=== PATIENT | female | born 1985 | race Caucasian/White ===

== ENCOUNTER 2019-10-04 08:14 | Observation (INO) | payer OTHER ==
--- NOTE | 2019-10-04 08:04 | TREADPHA ---
DX: CHEST PAIN Date of Study: 10/03/2019 Ht: 5 8 Wt: 180 lb 0 oz Consulting Physician: AZEEM MEDICATIONS: TYLENOL, ASPIRIN, CARDORA, LOVENOX, LASIX, AMARYL, TOPROL XL, ZOFRAN, PROTONIX, K-LYTE, DIOVAN HISTORY: 65 YEAR OLD MALE WITH COMPLAINTS OF SHORTNESS OF BREATH. MEDICAL HISTORY OF HYPERTENSION. PHYSICIAL EXAMINATION: RESTING B.P.: 170/113 RESTING H.R.: 74 RESTING EKG: SINUS, PREMATURE VENTICULAR COMPLEXES, RIGHT AXIS DEVIATION. NON SPECIFIC ST AND T ABNORMALITY. PROTOCOL: LEXISCAN EXERCISE TIME: 3:30 B.P. AT PEAK STRESS: 142/92 IMPRESSION: LEXISCAN INJECTED. CARDIOLITE INJECTED PER PROTOCOL. SEE NUCLEAR MEDICINE RESULTS. NO SUPRAVENTRICULAR TACHYCARDIA. NO VENTRICULAR TACHYCARDIA. MULTIPLE PREMATURE VENTRICULAR COMPLEXES THROUGHOUT TEST. DENIED CHEST PAIN. NON DIAGNOSTIC EKG WITH LEXISCAN STRESS.
[2019-10-04 08:09] LABS: Absolute Lymphocytes (CBC) 1.8 K/uL (0.7-4.9); Basophils % 0.7 % (0-1.3); Hematocrit 36.9 % (36.0-45.0); Lymphocytes % 26.2 % (15.3-44.8); MPV 9.2 fL (7.6-11.3); RBC Red Blood Cell Count 3.91 M/uL (3.86-4.86)
[2019-10-04] MEDS ORDERED: CEFAZOLIN SODIUM 1 GM/VIAL ONE ×2 (08:16→13:01)
[2019-10-04] MEDS ORDERED: GENTAMICIN SULF 80 MG/2ML INJ ONE (08:16)
[2019-10-04] MEDS ORDERED: NS 0.9% VIAL 20 ML ONE ×2 (08:16→09:03)
[2019-10-04] MEDS ORDERED: Mastisol Adhesive Liq ONE (08:17)
[2019-10-04] MEDS ORDERED: BACITRACIN 50000 UNIT VIAL ONE (08:17)
[2019-10-04] MEDS ORDERED: Ringers Lactate 1,000 ML IV ONE ×3 (08:17→10:43)
[2019-10-04] MEDS ORDERED: SCOPOLAMINE HYDROBROMIDE PATCH TD ONE ×2 (08:19→08:30)
[2019-10-04] MEDS ORDERED: CEFAZOLIN/SWI 1gm 1 GM/10 ML SYR ONE (08:19)
--- NOTE | 2019-10-04 08:47 | RAD REPORT ---
EXAM DESCRIPTION: RAD - Chest Pa And Lat (2 Views) - 10/04/2019 8:13 am CLINICAL HISTORY: preop Chest pain. COMPARISON: No comparisons FINDINGS: The lungs are clear. The heart is normal in size. No displaced fractures. Mild dextroscoli osis of the thoracic spine. IMPRESSION: No acute or concerning finding suspected.
[2019-10-04] MEDS ORDERED: PROPOFOL 200 MG/20 ML VIAL IV ONE ×2 (09:02→09:44)
[2019-10-04] MEDS ORDERED: ROCURONIUM 50 MG/5 ML VIAL IV ONE ×2 (09:02→11:19)
[2019-10-04] MEDS ORDERED: dexAMETHasone 10 MG/ML VIAL ONE (09:02)
[2019-10-04] MEDS ORDERED: LIDOCAINE 2% MPF 5 ML VIAL ONE (09:02)
[2019-10-04] MEDS ORDERED: FENTANYL CITR 250 MCG/5 ML ONE (09:02)
[2019-10-04] MEDS ORDERED: VECURONIUM 10 MG/VIAL IV ONE (09:03)
[2019-10-04] MEDS ORDERED: MIDAZOLAM HCL 2 MG/2 ML INJ ONE (09:03)
[2019-10-04] MEDS ORDERED: ONDANSETRON 4 MG/2 ML VIAL ONE (09:03)
[2019-10-04] MEDS ORDERED: MORPHINE 10 MG/ML VIAL ONE (10:11)
[2019-10-04] MEDS ORDERED: NS 0.9% VIAL 10 ML ONE ×2 (10:11→13:01)
[2019-10-04] MEDS ORDERED: MEPERIDINE HCL 25 MG/0.5 ML ONE (10:11)
[2019-10-04] MEDS ORDERED: GLYCOPYRROLATE 0.2 MG/ML SYR ONE (10:32)
[2019-10-04] MEDS ORDERED: EPHEDRINE SULF 50 MG/ML VIAL ONE (10:34)
[2019-10-04] MEDS: HYDROMORPHONE HCL 2 MG/ML inj ONE ×2 (15:35→15:52)
[2019-10-04] MEDS ORDERED: PROMETHAZINE 25 MG/ML VIAL ONE (15:39)
[2019-10-04] MEDS ORDERED: D5LR 1,000 ML IV ONE (16:10)
[2019-10-04 16:26] VITALS: O2SAT 98
--- NOTE | 2019-10-04 16:31 | EKG ---
Test Date: 2019-10-04 Test Time: 15:06:53 Ply Splicer: BRIDGETT MEASUREMENT RESULTS: Intervals: Rate: 78 WI: 156 QRSD: 78 QT: 420 QTc: 478 Vader: P: 50 WI: 156 QRS: 80 T: 68 INTERPRETIVE STATEMENTS: Normal sinus rhythm Low voltage QRS Borderline ECG Compared to ECG 10/04/2019 07:53:47 Low QRS voltage now present Sinus bradycardia no longer present Sinus arrhythmia no longer present Electronically Signed On 10-04-19 16:30:02 MARINE METEOROLOGIST by Sherman Finn
[2019-10-04] MEDS: CEPHALEXIN 500 MG CAP PO SCH (17:13)
[2019-10-04] MEDS: MEPERIDINE HCL 50 MG/ML IV PRN ×2 (17:14→21:39)
[2019-10-04 17:31] VITALS: BMI 27.3
[2019-10-04] MEDS ORDERED: D5LR 1,000 ML IV SCH (18:00)
--- NOTE | 2019-10-04 21:44 | OP ---
Surgeon: Carlos Shore MD Service Inspector: Adam. Preoperative Diagnosis: Breast enlargement, asymmetry and descent. Postoperative Diagnosis: Breast enlargement asymmetry and descent. Procedure Performed: Breast lift reduction. Anesthesia: General. Procedure In Detail: After satisfactory induction of general anesthesia, chest was prepped with Dura Prep, dry sterile drapes were applied in the usual manner. A 5 cm template was used to outline the r ight and left right areola. Then, a transverse and curvilinear incisions were made. Both sides were done simultaneously. The skin was de-epithelialized with dermabrader and EpiCut. Then the transver se incision was made with electrocautery. Flap was elevated 1.5 cm thick toward the sternum, clavicl e, anterior axillary line. Then the inferior incision was made. The de-epithelized tissue was forme d with cone prior to conization. Excess lateral breast tissue was excised with electrocautery. Tota l amount of breast tissue removed from right breast was 396 g, total amount on the left breast was 28 6 g. After this was done, conization performed with 2-0 PDS, then straps were elevated at 12 o'clock , 1:30 and 3 o'clock position on the right breast in a mirror image on the left. Straps were then wo genaro in and out the pectoralis major muscle, then back to the base of the cone, back to pectoralis mus chris, back to the base of cone, tied to themselves with 2-0 PDS suture. This was done for the 12 o'cl ock and 130 straps. The 3 o'clock strap was sewn over the sternum with 2-0 Ethibond. Mirror-image w as done on the left side. The patient's wounds were then temporarily stapled shut. Dog-ears were ma rked out and excised and then 10 FELIPE was brought out the axilla and sewn in place with 2-0 silk. Laye red closure consisted of 3-0 Vicryl subcu, 3-0 PDS running subcuticular tied in the vertical meridian of each breast. The patient was sat up. Site for new nipple-areolar complex was marked out. Tissu e was cored out, nipples delivered, sewn in place with interrupted 4-0 PDS followed by 4-0 PDS runnin g subcuticular. Dressings of tincture of benzoin, Steri-Strips, 5 x 5 fluffs and Chaitanya wrap during the procedure approximately 0.5 hour to 45 minutes into the procedure. While elevating the flaps the pa tient had bradycardia, but not a cardiac arrest. We resuscitated immediately and operation continued . No complication after that. FRED/ARNOLD Voice ID: [id number] Report ID: [id number]
[2019-10-04] MEDS: ONDANSETRON 4 MG/2 ML VIAL IV PRN (22:00)
[2019-10-05] MEDS: CYCLOBENZAPRINE 10 MG TAB PO PRN ×2 (01:08→08:10)
[2019-10-05] MEDS: CODEINE 30MG/APAP 300MG TAB PO PRN ×3 (01:09→12:03)
[2019-10-05] MEDS: ONDANSETRON 4 MG/2 ML VIAL IV PRN ×4 (02:16→14:59)
[2019-10-05] MEDS: MEPERIDINE HCL 50 MG/ML IV PRN ×4 (02:16→14:59)
[2019-10-05] MEDS: CEPHALEXIN 500 MG CAP PO SCH ×3 (06:00→12:03)
[2019-10-05 14:20] VITALS: BP 105/65; TEMP 99.2
--- NOTE | 2019-10-05 16:25 | CON ---
History Of Present Illness: The patient was admitted to Dr. Shore. I saw the patient for bradyc ardia intraoperatively. She was here for breast implants. The patient is 34 years old, has no previ ous past medical history or cardiac history. Of interest is that when she had her second child. The re were some episodes of bradycardia and she was actually seen by a patent drafter many years ago. She does not remember having any significant workup, but she was told everything was well. She does not feel her bradycardia. She does not have symptoms of it. No nausea, vomiting, diaphoresis, PND, ort hopnea, pedal edema, palpitations, or syncope. She denied any fatigue or dizziness. She is actually very healthy and has no past medical history. Allergies: NONE. Review of Systems: Negative. Social History: Negative. Family History: Negative. Medications At Home: Negative. Physical Examination: Vital Signs: Stable. Afebrile. HEENT: Negative. Neck: Supple. No bruit. Chest: Clear. Cardiac: Reveals regular rhythm and rate. No murmurs, gallops, or rubs. Abdomen: Benign. Extremities: Revealed no clubbing, cyanosis, or edema. Diagnostic Data: Normal. Impression And Plan: Intraoperative bradycardia. Apparently that has happened before and during her 1 of her deliveries. That happened during a . Apparently, cardiac evaluation was done at that time. No details, but there were all negative according to her. She could probably have a darryl ycardia chronically. She is physically fit and exercises a lot. She has chronic bradycardia. I am sure her intraoperative bradycardia probably secondary to anesthesia and may be a vagal reaction. So , I would not recommend any further cardiac workup on her at this time. Maybe sometime down the road , certainly, if she becomes symptomatic, I would be worth to do an echocardiogram and an event monito r on her. I also recommended that when she sees her family doctor to check her thyroid level. She c an go home otherwise. KANDY/ARNOLD Voice ID: [id number] Report ID: [id number]
--- NOTE | 2019-10-10 09:24 | DS ---
Date of Discharge: 10/05/2019 History: A 34-year-old, white female who requests a breast lift with minor reduction. She is a 34 double D, but asymmetrical. no medical problems. Does not drink or smoke. Allergies: NO ALLERGIES. Medications: No medications. Physical Examination: General: She is 5 feet 8 inches, 180 pounds. Examination of bilateral ptosis and asymmetry . During surgery she had bradycardia and had a short segment of asystoly few seconds. For that reason, she is kept overnight and Cardiology consult was obtained. They recommended ultrasound in 6 weeks . She will return to office following Thursday at 3 o'clock at the [employer] office. Condition on discharge, good. FRED/ARNOLD Voice ID: [id number] Report ID: [id number]
== END 2019-10-05 15:38 | disposition home or self-care (01) ==
LOC: OR 08:14 → 4TH 16:49
PROVIDERS: ADMIT Specialist; ATTEND Specialist
PROC: 0H0V0ZZ Alteration of Bilateral Breast, Open Approach (ICD-10-PCS; 2019-10-04)
PROC: 0H0V0ZZ Alteration of Bilateral Breast, Open Approach (ICD-10-PCS; principal; 2019-10-04 09:00)
DX: N64.81 Ptosis of breast (principal); N62 Hypertrophy of breast; N64.89 Other specified disorders of breast; I97.88 Other intraoperative complications of the circulatory system, not elsewhere classified; Y65.8 Other specified misadventures during surgical and medical care; Y92.234 Operating room of hospital as the place of occurrence of the external cause; R00.1 Bradycardia, unspecified
CPT/HCPCS: 93005 ×2; 85025; 36415; 81025; 88305; 71046; 19318; 19316; G0379; J2704 ×2; J2550; J1580; J2250; J1170; J3010; J1100; J2175 ×7; J0690 ×3; J7120 ×3; J2405 ×6; G0378 ×3